=== PATIENT | male | born 1990 | race Hispanic/Latino ===

== ENCOUNTER 2021-08-25 11:05 | Emergency (ER) | payer SELFPAY ==
[~2021-08-25] VITALS: Ht 177.8 cm; Wt 77.1 kg
[2021-08-25 11:06] VITALS: BP 126/76
[2021-08-25 11:41] LABS: INFLUENZA TYPE A NEGATIVE FOR TYPE A (NEG); INFLUENZA TYPE B NEGATIVE FOR TYPE B (NEG)
== END 2021-08-25 13:41 | disposition home or self-care (01) ==
LOC: EDH 11:05
DX: R06.00 Dyspnea, unspecified (principal); F12.10 Cannabis abuse, uncomplicated; F41.9 Anxiety disorder, unspecified; R20.2 Paresthesia of skin; Z20.822 Contact with and (suspected) exposure to COVID-19
CPT/HCPCS: 87635; 87804 ×2; 99283; C9803